=== PATIENT | male | born 1960 | race Caucasian/White ===

== ENCOUNTER 2020-07-04 16:41 | Emergency (ER) | payer OTHER ==
[2020-07-04 17:00] VITALS: BP 149/90; PULSE 83; TEMP 98.3; BMI 23.8
[2020-07-04] MEDS ORDERED: MECLIZINE HCL 25 MG TABLET (FP) PO ONE (17:40)
[2020-07-04] MEDS ORDERED: SODIUM CHLORIDE 0.9% 500 ML INFUS.BAG IV ONE (17:41)
[2020-07-04] MEDS ORDERED: MECLIZINE HCL 25 MG TABLET (FP) ONE (17:55)
[2020-07-04 18:21] LABS: URINE APPEARANCE CLEAR; URINE BILIRUBIN NEGATIVE (NEGATIVE); URINE COLOR YELLOW; URINE GLUCOSE (UA) 3+ (NEGATIVE); URINE KETONE TRACE (NEGATIVE); URINE LEUK ESTERASE NEGATIVE (NEGATIVE); URINE NITRITE NEGATIVE (NEGATIVE); URINE PROTEIN NEGATIVE (NEGATIVE); URINE UROBILINOGEN 0.2 mg/dL (0.2-1.0)
[2020-07-04 18:24] LABS: BASO % 0.7 % (0-2.0); HEMATOCRIT 42.9 % (35.4-49); HEMOGLOBIN 14.6 GM/dL (11.7-16.9); LYMPH % 29.4 % (8-40); MCH 31.3 pg (25.7-33.7); MCHC 33.9 g/dl (32.0-35.9); MEAN CELL VOLUME 92.3 fl (80-96); MEAN PLT VOLUME 8.9 fl (7.5-11.1); MONO % 8.8 % (3.8-10.2); NEUT % 59.1 % (42.8-82.8); PLATELET COUNT 218 K/MM3 (134-434); RBC 4.65 M/mm3 (4.00-5.60); RDW 14.2 % (11.9-15.9); WHITE BLOOD COUNT 6.8 K/mm3 (4.0-10.0)
[2020-07-04 19:02] LABS: CHLORIDE 103 mmol/L (98-107); POTASSIUM 4.3 mmol/L (3.5-5.1); SODIUM 137 mmol/L (136-145)
[2020-07-04 19:05] LABS: ALBUMIN 3.8 g/dl (3.4-5.0); ANION GAP 9 MMOL/L (8-16); BLOOD UREA NITROGEN 10.9 mg/dL (7-18); CALCIUM 8.8 mg/dL (8.5-10.1); CO2 25 mmol/L (21-32); GLUCOSE,RANDOM 291 mg/dL (74-106); LIPASE 514 U/L (73-393)
[2020-07-04 19:08] LABS: CREATININE 0.9 mg/dL (0.55-1.3); SGOT/AST 16 U/L (15-37); SGPT/ALT 38 U/L (13-61)
[2020-07-04 19:10] LABS: BILIRUBIN,TOTAL 0.3 mg/dL (0.2-1); TOT PROT 6.9 g/dl (6.4-8.2)
[2020-07-04 19:11] LABS: ALK PHOS 115 U/L (45-117)
== END 2020-07-04 20:28 | disposition home or self-care (01) ==
LOC: JER 16:41
DX: R73.9 Hyperglycemia, unspecified (principal)
CPT/HCPCS: 36415; 71046-TC-FY; 80053; 81003; 82010; 82550; 82962; 83690; 83880; 84484; 85025; 93005; 93010; 99285-25